=== PATIENT | male | born 1975 | race Hispanic/Latino ===

== ENCOUNTER 2017-01-29 23:57 | Emergency (ER) | payer SELFPAY ==
[2017-01-30 00:27] VITALS: BP 119/75
[2017-01-30] MEDS ORDERED: COLCRYS PO ONE (03:56)
[2017-01-30] MEDS ORDERED: NORCO 5/325 PO ONE (03:56)
--- NOTE | 2017-01-30 04:02 | Emergency Department Report ---
ED General Adult HPI - General Chief complaint: Extremity Problem,Nontraumatic Stated complaint: RT FOOT SWOLLEN Time Seen by Provider: 01/30/17 03:33 Source: patient Mode of arrival: Ambulatory Limitations: No Limitations - History of Present Illness Initial comments: Patient comes into the ER today with complaints of right fourth toe pain. Patient denies any injury. Patient states that the pain has been there for 2 days and is progressively worsening. Patient states that the pain is so severe that he cannot put his shoes on. States that movement and anything touching his foot makes it worse. - Related Data Previous Rx's Medication Instructions Recorded Last Taken Type Colchicine [Colcrys] 0.6 mg PO BID #10 tab 01/30/17 Unknown Rx HYDROcodone/APAP 5-325 [[place] 1 each PO Q6HR PRN #15 tablet 01/30/17 Unknown Rx 5/325] Indomethacin 50 mg PO Q8H #30 capsule 01/30/17 Unknown Rx Allergies Allergy/AdvReac Type Severity Reaction Status Date / Time Penicillins Allergy Rash Verified 08/06/14 17:38 tramadol HCl [From [facility]] Allergy Rash Verified 08/06/14 17:38 ED Review of Systems ROS: Stated complaint: RT FOOT SWOLLEN Other details as noted in HPI Constitutional: denies: chills, fever Eyes: denies: eye pain, eye discharge, vision change ENT: denies: ear pain, throat pain Respiratory: denies: cough, shortness of breath, wheezing Cardiovascular: denies: chest pain, palpitations Endocrine: no symptoms reported Gastrointestinal: denies: abdominal pain, nausea, diarrhea Genitourinary: denies: urgency, dysuria Musculoskeletal: arthralgia. denies: back pain, joint swelling Skin: denies: rash, lesions Neurological: denies: headache, weakness, paresthesias Psychiatric: denies: anxiety, depression Hematological/Lymphatic: denies: easy bleeding, easy bruising ED Past Medical Hx - Past Medical History Previous Medical History?: Yes Hx Psychiatric Treatment: Yes Additional medical history: schizophrenia, BIPOLAR - Surgical History Additional Surgical History: tube in right ear - Social History Smoking Status: Current Every Day Smoker Substance Use Type: None - Medications Home Medications: Home Medications Medication Instructions Recorded Confirmed Last Taken Type Colchicine [Colcrys] 0.6 mg PO BID #10 tab 01/30/17 Unknown Rx HYDROcodone/APAP 5-325 [[place] 1 each PO Q6HR PRN #15 tablet 01/30/17 Unknown Rx 5/325] Indomethacin 50 mg PO Q8H #30 capsule 01/30/17 Unknown Rx ED Physical Exam - General Limitations: No Limitations General appearance: alert, in no apparent distress - Head Head exam: Present: atraumatic, normocephalic - Eye Eye exam: Present: normal appearance - ENT ENT exam: Present: mucous membranes moist - Neck Neck exam: Present: normal inspection - Respiratory Respiratory exam: Present: normal lung sounds bilaterally. Absent: respiratory distress - Cardiovascular Cardiovascular Exam: Present: regular rate, normal rhythm. Absent: systolic murmur, diastolic murmur, rubs, gallop - GI/Abdominal GI/Abdominal exam: Present: soft, normal bowel sounds - Rectal Rectal exam: Present: deferred - Extremities Exam Extremities exam: Present: tenderness (right first MTP joint tenderness), normal capillary refill, joint swelling, other (redness and warmth noted to area of right fourth MTP joint). Absent: full ROM (Limited range of motion of right fourth toe secondary to pain), pedal edema, calf tenderness - Back Exam Back exam: Present: normal inspection - Neurological Exam Neurological exam: Present: alert, oriented X3, CN II-XII intact, reflexes normal. Absent: motor sensory deficit - Psychiatric Psychiatric exam: Present: normal affect, normal mood - Skin Skin exam: Present: warm, dry, intact, normal color. Absent: rash ED Course Vital Signs 01/30/17 00:24 Temperature 97.3 F L Pulse Rate 81 Respiratory 18 Rate Blood Pressure 119/75 O2 Sat by Pulse 96 Oximetry ED Medical Decision Making - Medical Decision Making Patient is nontoxic and hemodynamically stable. Physical exam and history is more consistent with patient having gout flareup rather than injury. Patient is adamant that he did not injure his foot. There is no break in the skin suggestive of any type of bite or infection. Patient does state that he was told by a doctor once that he had elevated uric acid levels. Patient was given postop surgical shoe here in the ER to help limit range of motion of toe upon ambulation. I will start patient on medication towards treating a gout flareup and refer patient back to primary care doctor or distribution center associate for further evaluation. Patient is in agreement with treatment plan the patient is stable for discharge. Critical care attestation.: If time is entered above; I have spent that time in minutes in the direct care of this critically ill patient, excluding procedure time. ED Disposition Clinical Impression: Gout Disposition: DC- TO HOME OR SELFCARE Is pt being admited?: No Does the pt Need Aspirin: No Condition: Good Instructions: Acute Gouty Arthritis (ED) Prescriptions: Colchicine [Colcrys] 0.6 mg PO BID #10 tab HYDROcodone/APAP 5-325 [[place] 5/325] 1 each PO Q6HR PRN #15 tablet PRN Reason: Pain Indomethacin 50 mg PO Q8H #30 capsule Referrals: PRIMARY CAREMD [Primary Care Provider] - 3-5 Days DEBBIE EVANS MD [Referring] - 3-5 Days Time of Disposition: 04:04
== END 2017-01-30 06:47 | disposition home or self-care (01) ==
LOC: ED 23:57
DX: M10.9 Gout, unspecified (principal); F17.200 Nicotine dependence, unspecified, uncomplicated
CPT/HCPCS: 99282

== ENCOUNTER 2017-03-18 11:43 | Emergency (ER) | payer OTHER ==
[2017-03-18 16:33] VITALS: BP 122/76
--- NOTE | 2017-03-18 17:56 | Emergency Department Report ---
- General Chief complaint: Skin/Abscess/Foreign Body Stated complaint: INSECT BITE Time Seen by Provider: 03/18/17 16:06 Source: patient, family Mode of arrival: Ambulatory Limitations: No Limitations - History of Present Illness Initial comments: Patient reported left forearm swollen and red after insect bite. Reported dizziness To the center and there was scant yellow drainage. Denies any numbness or tingling to extremities. Denies any fever or chills reported pain is 6 out of 10 he said this has been going on for 3 days. Denies any restriction in movement of fingers. MD complaint: abscess/boil Onset/Timin Tetanus Up to Date: no Location: LUE (right forearm) Severity: moderate Severity scale (0 -10): 6 Quality: other (stobbing) Consistency: constant Improves with: rest Worsens with: palpation, movement Context: witnessed insect bite Associated symptoms: athralgias Treatments Prior to Arrival: bandages - Related Data Previous Rx's Medication Instructions Recorded Last Taken Type Colchicine [Colcrys] 0.6 mg PO BID #10 tab 01/30/17 Unknown Rx HYDROcodone/APAP 5-325 [[place] 1 each PO Q6HR PRN #15 tablet 01/30/17 Unknown Rx 5/325] Indomethacin 50 mg PO Q8H #30 capsule 01/30/17 Unknown Rx HYDROcodone/APAP 7.5-325 [[place] 1 each PO Q6HR PRN #15 tablet 03/18/17 Unknown Rx 7.5/325] Sulfamethoxazole/Trimethoprim 2 each PO BID #40 tablet 03/18/17 Unknown Rx [Bactrim DS TAB] Allergies Allergy/AdvReac Type Severity Reaction Status Date / Time Penicillins Allergy Rash Verified 08/06/14 17:38 tramadol HCl [From [facility]] Allergy Rash Verified 08/06/14 17:38 Abscess Boil HPI - HPI Chief Complaint: Skin/Abscess/Foreign Body Stated Complaint: INSECT BITE Time Seen by Provider: 03/18/17 16:06 Home Medications: Previous Rx's Medication Instructions Recorded Last Taken Type Colchicine [Colcrys] 0.6 mg PO BID #10 tab 01/30/17 Unknown Rx HYDROcodone/APAP 5-325 [[place] 1 each PO Q6HR PRN #15 tablet 01/30/17 Unknown Rx 5/325] Indomethacin 50 mg PO Q8H #30 capsule 01/30/17 Unknown Rx HYDROcodone/APAP 7.5-325 [[place] 1 each PO Q6HR PRN #15 tablet 03/18/17 Unknown Rx 7.5/325] Sulfamethoxazole/Trimethoprim 2 each PO BID #40 tablet 03/18/17 Unknown Rx [Bactrim DS TAB] Allergies/Adverse Reactions: Allergies Allergy/AdvReac Type Severity Reaction Status Date / Time Penicillins Allergy Rash Verified 08/06/14 17:38 tramadol HCl [From [facility]] Allergy Rash Verified 08/06/14 17:38 ED Review of Systems ROS: Stated complaint: INSECT BITE Other details as noted in HPI Comment: All other systems reviewed and negative Constitutional: denies: chills, fever Respiratory: no symptoms reported Cardiovascular: denies: chest pain, palpitations, edema, syncope Gastrointestinal: denies: abdominal pain, nausea, vomiting, diarrhea, constipation Musculoskeletal: arthralgia. denies: back pain, joint swelling, myalgia Skin: other (abscess with insect bite to left forearm). denies: rash Neurological: denies: headache, weakness, numbness, paresthesias, confusion, abnormal gait, vertigo ED Past Medical Hx - Past Medical History Previous Medical History?: Yes Hx Psychiatric Treatment: Yes Additional medical history: schizophrenia, BIPOLAR - Surgical History Past Surgical History?: Yes Additional Surgical History: tube in right ear - Family History Family history: hypertension - Social History Smoking Status: Current Every Day Smoker Substance Use Type: None, Other - Medications Home Medications: Home Medications Medication Instructions Recorded Confirmed Last Taken Type Colchicine [Colcrys] 0.6 mg PO BID #10 tab 01/30/17 Unknown Rx HYDROcodone/APAP 5-325 [[place] 1 each PO Q6HR PRN #15 tablet 01/30/17 Unknown Rx 5/325] Indomethacin 50 mg PO Q8H #30 capsule 01/30/17 Unknown Rx HYDROcodone/APAP 7.5-325 [[place] 1 each PO Q6HR PRN #15 tablet 03/18/17 Unknown Rx 7.5/325] Sulfamethoxazole/Trimethoprim 2 each PO BID #40 tablet 03/18/17 Unknown Rx [Bactrim DS TAB] ED Physical Exam - General Limitations: No Limitations General appearance: alert, in no apparent distress - Head Head exam: Present: atraumatic, normocephalic, normal inspection - Eye Eye exam: Present: normal appearance, PERRL, EOMI. Absent: periorbital swelling , periorbital tenderness Pupils: Present: normal accommodation - ENT ENT exam: Present: normal exam, normal orophraynx, mucous membranes moist - Neck Neck exam: Present: normal inspection, full ROM. Absent: tenderness, meningismus, lymphadenopathy - Respiratory Respiratory exam: Present: normal lung sounds bilaterally. Absent: respiratory distress, wheezes, rales, rhonchi, stridor, chest wall tenderness - Cardiovascular Cardiovascular Exam: Present: regular rate, normal rhythm, normal heart sounds - GI/Abdominal GI/Abdominal exam: Present: soft, normal bowel sounds. Absent: distended, tenderness, guarding, rebound, rigid - Extremities Exam Extremities exam: Present: full ROM, tenderness (left forearm anteriorly with erythema and swelling. Tender to palpate), normal capillary refill. Absent: normal inspection, pedal edema, joint swelling, calf tenderness - Back Exam Back exam: Present: normal inspection, full ROM. Absent: tenderness, CVA tenderness (R), CVA tenderness (L), muscle spasm, paraspinal tenderness, vertebral tenderness, rash noted - Neurological Exam Neurological exam: Present: alert, oriented X3, normal gait, reflexes normal. Absent: motor sensory deficit - Psychiatric Psychiatric exam: Present: normal affect, normal mood - Skin Skin exam: Present: warm, dry, erythema. Absent: rash - Expanded Skin Exam Expanded Type of lesion: Present: abscess, bite/sting Distribution of rash: LUE (anterior mid forearm) Description of rash: Present: size (7 x 6 cm erythema with 4 x 5 cm induration.) , tenderness, erythematous (small discolored tissue to Center of indurated tissue. ), swelling, fluctuant (minimal fluctuant indurated area), indurated ( indurated). Absent: confluent, bullous, petechial, purpuic, discharge ED Course Vital Signs 03/18/17 03/18/17 03/18/17 12:08 16:32 19:04 Temperature 98 F 97.9 F Pulse Rate 91 H 81 Respiratory 16 16 20 Rate Blood Pressure 127/80 Blood Pressure 122/76 [Left] O2 Sat by Pulse 98 98 Oximetry - Reevaluation(s) Reevaluation #1: 03/18/17 19:51 Patient received clindamycin 600 mg IM, Percocet 5/325 2 tablets by mouth and tetanus vaccine booster 0.5 mL in emergency room. He had no Adverse reaction. - I & D Left Anterior Medial Dorsal Type of Procedure: Complex Site: left dorsal aspects medial forearm Blade Size: 11 I & D Procedure: betadine prep, sterile drapes applied, sterile dressing applied , gauze wick placed Progress: Incision and drainage done to assess cellulitic area left forearm under sterile procedure. Area cleansed with iodine followed by normal saline. Small incision made suicide. Very minimal pus expressed from site. Area is still very indurated therefore iodoform packing in place the site followed by sterile dry dressing and patient informed to return to the emergency room in 4 days for reevaluation of abscess and possible removal of packing. Vaccine was given and patient instructed not to remove packing from site. Patient instructed to place warm compresses the site 3-4 times a day. ED Medical Decision Making - Medical Decision Making ED course: Patient here for insect bite with cellulitis and abscess. Abscess drained see procedure note for details. Patient has no neurovascular compromise and no restriction in movement to extremities. Patient given 600 mg clindamycin IM, booster 0.5 mL and Percocet 5/325 mg 2 tablets in the emergency room. I instructed patient to return in 4 days to have pack and an abscess reevaluated and possible removal of packing. He'll apply warm compresses 3-4 times a day to help prophylaxis and facilitate drainage. Voice understanding of discharge diagnosis and treatment plan and discharged home in stable condition. Procedure : See procedure note for incision and drainage. Assessment/Plan. 1. Cellulitis left forearm 2. Abscess left forearm 3. Incontinence for incision and drainage of abscess 4. Arthralgia left forearm Discharged home with prescription for Bactrim DS and Haswell 5/325. Patient given instruction on wound care and to leave packing in place until he returned in 4 days. Critical care attestation.: If time is entered above; I have spent that time in minutes in the direct care of this critically ill patient, excluding procedure time. ED Disposition Clinical Impression: Cellulitis of left forearm, Abscess of left forearm, Arthralgia of left forearm , Encounter for incision and drainage procedure Disposition: TO HOME OR SELFCARE Is pt being admited?: No Does the pt Need Aspirin: No Condition: Stable Instructions: Abscess Incision and Drainage (ED), Cellulitis (ED), Acute Wound Care (ED) Additional Instructions: Please leave packing in place and return to the emergency room in 4 days which will be 03/22/2017 for reevaluation of abscess and possible removal of packing and Take antibiotic as prescribed Do not drive or operate heavy machinery while taking Haswell because this medication will make you sleepy Apply warm compresses to affected site 3-4 times a day to facilitate soft venous abscess Keep affected area clean and dry Prescriptions: HYDROcodone/APAP 7.5-325 [[place]well 7.5/325] 1 each PO Q6HR PRN #15 tablet PRN Reason: Pain Sulfamethoxazole/Trimethoprim [Bactrim DS TAB] 2 each PO BID #40 tablet Referrals: return to, emergency room [Other] - 03/22/17 Forms: Work/School Release Form(ED)
[2017-03-18] MEDS ORDERED: PERCOCET 5/325 PO ONE (18:27)
[2017-03-18] MEDS ORDERED: MARCAINE 0.5% INFILTRATI ONE (18:27)
[2017-03-18] MEDS ORDERED: BOOSTRIX IM ONE (18:27)
[2017-03-18] MEDS ORDERED: CLEOCIN IM ONE (18:28)
== END 2017-03-18 20:16 | disposition home or self-care (01) ==
LOC: ED 11:43
DX: S50.862A Insect bite (nonvenomous) of left forearm, initial encounter (principal); L03.114 Cellulitis of left upper limb; F17.200 Nicotine dependence, unspecified, uncomplicated; F31.9 Bipolar disorder, unspecified; F20.9 Schizophrenia, unspecified; Z88.0 Allergy status to penicillin; Z88.8 Allergy status to other drugs, medicaments and biological substances; W57.XXXA Bitten or stung by nonvenomous insect and other nonvenomous arthropods, initial encounter; Y93.89 Activity, other specified; Y92.89 Other specified places as the place of occurrence of the external cause; Y99.8 Other external cause status
CPT/HCPCS: 90471; 90715; 96372

== ENCOUNTER 2017-09-16 18:37 | Emergency (ER) | payer SELFPAY ==
[2017-09-16 18:46] VITALS: BP 129/82
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
[2017-09-17] MEDS ORDERED: ROBITUSSIN PO ONE
[2017-09-17] MEDS ORDERED: MOTRIN PO ONE
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
--- NOTE | 2017-09-17 00:47 | XRay Report ---
FINAL REPORT EXAM: XR CHEST ROUTINE 2V HISTORY: Cough and congestion. TECHNIQUE: A lateral and two frontal radiographs of the chest were obtained. No prior studies are available for comparison. FINDINGS: Note that the lower left lateral chest wall and left costophrenic angle are not included on either frontal radiograph. The cardiac silhouette and mediastinum are within normal limits. The lungs are clear bilaterally, without focal infiltrate or effusion. There is no pneumothorax. No significant osseous abnormalities are identified. IMPRESSION: No focal infiltrate or effusion.
== END 2017-09-17 01:15 | disposition home or self-care (01) ==
LOC: ED 18:37
DX: S46.912A Strain of unspecified muscle, fascia and tendon at shoulder and upper arm level, left arm, initial encounter (principal); B34.9 Viral infection, unspecified; W19.XXXA Unspecified fall, initial encounter; Y93.89 Activity, other specified; Y92.89 Other specified places as the place of occurrence of the external cause; Y99.8 Other external cause status
CPT/HCPCS: 71046; 99283

== ENCOUNTER 2018-02-16 08:44 | Emergency (ER) | payer SELFPAY ==
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
--- NOTE | 2018-02-16 10:06 | XRay Report ---
Show T score History: Trauma. Pain. Findings: No fracture or dislocation. A.c. joint appears normal. There is sclerotic areas identified at the greater tuberosity. Glenoid humeral joint appears normal. Impression: Sclerotic areas at greater tuberosity probably related to chronic low-grade injury or chronic impingement. No acute fracture.
[2018-02-16 10:36] VITALS: BP 120/70
== END 2018-02-16 10:21 | disposition home or self-care (01) ==
LOC: ED 08:44
DX: M75.42 Impingement syndrome of left shoulder (principal); F17.200 Nicotine dependence, unspecified, uncomplicated; F20.9 Schizophrenia, unspecified; F31.9 Bipolar disorder, unspecified; Z88.0 Allergy status to penicillin; Z88.6 Allergy status to analgesic agent; Z79.899 Other long term (current) drug therapy
CPT/HCPCS: 99283